=== PATIENT | male | born 1935 | race Two or more races ===

== ENCOUNTER → 2016-07-10 | Outpatient (CLI) | payer MEDICARE, MEDICAID ==
[2016-07-10 09:53] LABS: ASPARTATE AMINO TRANSFERASE 18 U/L (15-37); BLOOD UREA NITROGEN 18 mg/dL (7-18)
[2016-07-10 09:57] LABS: PROSTATE SPECIFIC ANTIGEN 1.76 ng/mL (0.00-4.00)
== END | disposition home or self-care (01) ==
LOC: LAB 09:29
PROVIDERS: ATTEND Family Medicine
DX: Z12.5 Encounter for screening for malignant neoplasm of prostate (principal)
CPT/HCPCS: 36415; 80053; 80061; 84153; 85025

== ENCOUNTER 2017-10-22 16:56 | Emergency (ER) | payer MEDICARE, MEDICAID ==
[~2017-10-22] VITALS: Ht 167.6 cm; Wt 97.5 kg
[2017-10-22] MEDS ORDERED: ASPIRIN 81 MG TABLET CHEW PO ONE (17:30)
[2017-10-22] MEDS ORDERED: SODIUM CHLORIDE FLUSH 10ML SYR IVF ONE (17:30)
[2017-10-22 17:40] LABS: BASOPHILS # (AUTO) 0.04 x10^3/uL (0-0.1); BASOPHILS % (AUTO) 0 % (0-1); EOSINOPHILS # (AUTO) 0.14 x10^3/uL (0-0.4); EOSINOPHILS % (AUTO) 2 % (1-7); LYMPHOCYTES # (AUTO) 1.79 x10^3/uL (1-3.4); LYMPHOCYTES % (AUTO) 19 % (22-44); MD NO; MEAN CORPUSCULAR HEMOGLOBIN 32.7 pg (27.5-34.5); MEAN CORPUSCULAR HGB CONC 33.9 g/dL (33.2-36.2); MEAN CORPUSCULAR VOLUME 96.5 fL (81-97); MEAN PLATELET VOLUME 7.2 fL (7.4-10.4); MONOCYTES # (AUTO) 0.81 x10^3/uL (0.2-0.8); MONOCYTES % (AUTO) 9 % (2-9); NEUTROPHILS # (AUTO) 6.69 x10^3/uL (1.8-6.8); NEUTROPHILS % (AUTO) 71 % (42-75); PLATELET COUNT 275 x10^3/uL (130-400); RED CELL DISTRIBUTION WIDTH 15.4 % (9.4-14.8)
[2017-10-22 17:51] LABS: ALANINE AMINOTRANSFERASE 31 U/L (12-78); ALBUMIN 3.9 g/dL (3.4-5.0); ANION GAP 7 mmol/L (5-15); CALCIUM 9.1 mg/dL (8.5-10.1); CHLORIDE 106 mmol/L (98-107); CREATININE 1.24 mg/dL (0.7-1.3)
[2017-10-22 17:56] LABS: ALKALINE PHOSPHATASE 48 U/L (45-117); BILIRUBIN,TOTAL 1.2 mg/dL (0.2-1.0); TOTAL PROTEIN 8.3 g/dL (6.4-8.2); TROPONIN I < 0.015 ng/mL (0.000-0.045)
[2017-10-22] MEDS ORDERED: ASPIRIN 81 MG TABLET CHEW ONE (18:13)
[2017-10-22 18:48] VITALS: BP 135/82
== END 2017-10-22 20:10 | disposition home or self-care (01) ==
LOC: ED 19:35
DX: R10.13 Epigastric pain (principal)
CPT/HCPCS: 36415; 71045; 76700; 80053; 83690; 83880; 84484; 85025; 93005; 99285

== ENCOUNTER 2018-09-16 15:21 | Emergency (ER) | payer MEDICARE, MEDICAID ==
[~2018-09-16] VITALS: Ht 167.6 cm; Wt 97.0 kg
[2018-09-16 15:53] VITALS: BP 145/86
[2018-09-16] MEDS ORDERED: PROPARACAINE OPHTH 0.5%, 15ML EACHEYE ONE (16:00)
[2018-09-16] MEDS ORDERED: FLUORESCEIN OPHTHALMIC 1 MG STRIP EACHEYE ONE (16:00)
--- NOTE | 2018-09-16 17:35 | NUR ---
PT TO ROOM FROM LOBBY AT THIS TIME
[2018-09-16] MEDS ORDERED: FLUORESCEIN OPHTHALMIC 1 MG STRIP ONE (17:36)
[2018-09-16] MEDS ORDERED: PROPARACAINE OPHTH 0.5%, 15ML ONE (17:36)
--- NOTE | 2018-09-16 18:48 | NUR ---
LATE ENTRY FOR 1830 Patient/Caregiver given discharge instructions and they have confirmed that they understand the instructions. Patient ambulatory with steady gait. PT LEFT WITH ALL PERSONAL BELONGINGS.
== END 2018-09-16 18:50 | disposition home or self-care (01) ==
LOC: ED 18:36
DX: H10.9 Unspecified conjunctivitis (principal); F31.9 Bipolar disorder, unspecified; Z87.891 Personal history of nicotine dependence
CPT/HCPCS: 99283

== ENCOUNTER 2020-08-22 15:34 | Emergency (ER) | payer MEDICARE, MEDICAID ==
[~2020-08-22] VITALS: Ht 175.3 cm; Wt 94.3 kg
[2020-08-22] MEDS ORDERED: ACETAMINOPHEN 500 MG TABLET PO ONE (16:30)
[2020-08-22] MEDS ORDERED: ACETAMINOPHEN 500 MG TABLET ONE (16:37)
--- NOTE | 2020-08-22 16:39 | NUR ---
BREAK RN. PT TO IMAGING.
[2020-08-22 16:41] LABS: BASOPHILS % (AUTO) 0 % (0-1); EOSINOPHILS % (AUTO) 0 % (1-7); LYMPHOCYTES % (AUTO) 10 % (22-44); MEAN CORPUSCULAR HEMOGLOBIN 32.7 pg (27.5-34.5); MEAN CORPUSCULAR HGB CONC 34.1 g/dL (33.2-36.2); MONOCYTES % (AUTO) 9 % (2-9); NEUTROPHILS % (AUTO) 81 % (42-75); PLATELET COUNT 205 x10^3/uL (130-400); RED BLOOD COUNT 4.85 x10^6/uL (4.38-5.82); RED CELL DISTRIBUTION WIDTH 13.8 % (9.4-14.8)
[2020-08-22 16:49] LABS: ANION GAP 8 mmol/L (5-15); CALCIUM 8.6 mg/dL (8.5-10.1); CHLORIDE 109 mmol/L (98-107); CREATININE 0.86 mg/dL (0.7-1.3)
--- NOTE | 2020-08-22 17:00 | NUR ---
PT PRESENTS TO ED WITH C/O LOWER BACK PAIN X2 WEEKS. PT STATES PAIN STARTED IN UPPER LEFT QUADRANT OF BACK AND HAS NOW RADIATED TO LWOER BACK BILATERALLY. PT STATES IT HAS GOTTEN PROGRESSIVELY WORSE AND NOW HAS DIFFICULTY WALKING. PT DENIES ANY TRAUMA OR OTHER INJURIES. PT A&O, RESPS EVEN AND UNLABORED, HIRAL FELIPE. DAUGHTER AT BEDSIDE, CALL LIGHT IN REACH.
[2020-08-22 17:32] VITALS: BP 129/70
--- NOTE | 2020-08-22 17:37 | NUR ---
PT AWARE OF NEEDED URINE SAMPLE, UA SUPPLIES AT BEDSIDE.
--- NOTE | 2020-08-22 17:51 | NUR ---
PT AMBULATORY TO BATHROOM WITH STEADY GAIT, URINE SAMPLE PROVIDED. STATES PAIN IS IMPROVING WITH MEDICATION.
[2020-08-22 18:18] LABS: MICROSCOPIC AUTO
--- NOTE | 2020-08-22 18:52 | NUR ---
discharge intructions reviewed, pt verbalized understanding. ambulatory to discharge with steady gait, no complaints at time of discharge.
== END 2020-08-22 18:55 | disposition home or self-care (01) ==
LOC: ED 18:22
DX: M51.34 Other intervertebral disc degeneration, thoracic region (principal)
CPT/HCPCS: 36415; 72110; 80048; 81001; 85025; 99284

== ENCOUNTER → 2020-09-24 | Outpatient (CLI) | payer MEDICARE, MEDICAID ==
[~2020-09-24] MED LIST: ASPI-963 PO; ATOR40TA78 PO; CEFD300C37 PO; LISI5TAB7 PO; METO25TA91 PO; OMNIPAQUE 350 MG/ML, 100ML BOTTLE ONE; PHEN-583 PO
== END | disposition home or self-care (01) ==
LOC: CFH 15:18
PROVIDERS: ATTEND Urology
DX: K57.30 Diverticulosis of large intestine without perforation or abscess without bleeding (principal); N28.1 Cyst of kidney, acquired; N40.0 Benign prostatic hyperplasia without lower urinary tract symptoms; N28.89 Other specified disorders of kidney and ureter
CPT/HCPCS: 74178; Q9967

== ENCOUNTER → 2020-11-05 | Outpatient (CLI) | payer MEDICARE, MEDICAID ==
[~2020-11-05] MED LIST changes: -OMNIPAQUE 350 MG/ML, 100ML BOTTLE ONE; +REGADENOSON 0.4 MG/5 ML SYRINGE ONE
== END | disposition home or self-care (01) ==
LOC: CFH 12:17
PROVIDERS: ATTEND Internal Medicine Cardiovascular Disease
DX: I25.9 Chronic ischemic heart disease, unspecified (principal); I42.9 Cardiomyopathy, unspecified; I48.91 Unspecified atrial fibrillation
CPT/HCPCS: 78452; 93017; A9502; J2785

== ENCOUNTER → 2020-11-05 | Outpatient (CLI) | payer MEDICARE, MEDICAID ==
[~2020-11-05] MED LIST changes: -REGADENOSON 0.4 MG/5 ML SYRINGE ONE
== END | disposition home or self-care (01) ==
LOC: RAD 15:35
PROVIDERS: ATTEND Internal Medicine Cardiovascular Disease
DX: I51.7 Cardiomegaly (principal); I48.91 Unspecified atrial fibrillation; I22.2 Subsequent non-ST elevation (NSTEMI) myocardial infarction; I42.9 Cardiomyopathy, unspecified; I77.810 Thoracic aortic ectasia
CPT/HCPCS: 71046

== ENCOUNTER 2020-11-12 14:58 | Outpatient (CLI) | payer MEDICARE, MEDICAID ==
[2020-11-12] MEDS ORDERED: OMNIPAQUE 350 MG/ML, 100ML BOTTLE ONE (16:06)
== END 2020-11-12 23:59 | disposition home or self-care (01) ==
LOC: CFH 14:58 → MERGE 15:15 → CFH 23:59
PROVIDERS: ATTEND Internal Medicine Cardiovascular Disease
DX: I71.2 Thoracic aortic aneurysm, without rupture (principal); I25.10 Atherosclerotic heart disease of native coronary artery without angina pectoris; N28.1 Cyst of kidney, acquired; I31.3 Pericardial effusion (noninflammatory); N28.89 Other specified disorders of kidney and ureter
CPT/HCPCS: 71275; 82565; Q9967